=== PATIENT | male | born 1975 | race Caucasian/White ===

== ENCOUNTER 2016-10-04 00:18 | Emergency (ER) | payer OTHER ==
[~2016-10-04] VITALS: Ht 175.3 cm; Wt 76.2 kg
[~2016-10-04 00:18] MED LIST: DILA100C PO
[2016-10-04 01:36] LABS: MEAN CORPUSCULAR HEMOGLOBIN 34.7 pg (27.0-33.0); MEAN CORPUSCULAR HGB CONC 35.3 g/dl (32.0-36.5); MEAN CORPUSCULAR VOLUME 98.2 fl (80.0-96.0); RED CELL DISTRIBUTION WIDTH 12.1 % (11.5-14.5); WHITE BLOOD COUNT 6.4 K/mm3 (4.0-10.0)
--- NOTE | 2016-10-04 02:00 | REPUSA ---
CLINICAL HISTORY: Head trauma. TECHNIQUE: Multiple axial brain CT scan sections were obtained from base to vertex without contrast a dministration. COMMENTS: Comparison is made to the prior exam performed on 05/23/2015. There is no evidence of skull fracture. The study shows normal configuration of sella turcica. There are no intra or extra-axial collections. There is no mass effect or midline shift. There is no evidence of hematoma formation. No hydrocephal us is present. No abnormal calcifications are noted. No significant abnormalities are seen either in the posterior fossa or supratentorial compartment. Unchanged mild chronic mucosal inflammatory changes of the sphenoid sinuses and ethmoid air cells. The remaining sinuses and mastoid air cells are patent. IMPRESSION: Unchanged chronic sinusitis. No evidence of acute intracranial pathology. No intracranial hemorrhage or skull fracture. Thank you for your kind referral of this patient.
[2016-10-04 02:14] LABS: ALBUMIN 4.1 GM/DL (3.2-5.2); ALBUMIN/GLOBULIN RATIO 1.32 (1.00-1.93); ALKALINE PHOSPHATASE 143 U/L (45-117); ALT/SGPT 20 U/L (12-78); ANION GAP 12 MEQ/L (8-16); AST/SGOT 11 U/L (15-37); BILIRUBIN,DIRECT 0.3 MG/DL (0.0-0.2); BILIRUBIN,TOTAL 0.9 MG/DL (0.2-1.0); BLOOD UREA NITROGEN 19 MG/DL (7-18); CARBON DIOXIDE LEVEL 23 MEQ/L (21-32); CHLORIDE LEVEL 104 MEQ/L (98-107); CREATININE FOR GFR 0.75 MG/DL (0.70-1.30); GLOMERULAR FILTRATION RATE > 60.0 (>60); GLUCOSE, FASTING 78 MG/DL (70-105); POTASSIUM SERUM 3.8 MEQ/L (3.5-5.1); SODIUM LEVEL 139 MEQ/L (136-145); TOTAL PROTEIN 7.2 GM/DL (6.4-8.2)
[2016-10-04 02:52] LABS: METHADONE URINE NEGATIVE (NEGATIVE)
[2016-10-04 03:28] VITALS: BP 131/88
== END 2016-10-04 03:29 | disposition home or self-care (01) ==
LOC: M ED 01:39
DX: F32.9 Major depressive disorder, single episode, unspecified (principal); R56.9 Unspecified convulsions; Z87.820 Personal history of traumatic brain injury; F17.200 Nicotine dependence, unspecified, uncomplicated; F12.10 Cannabis abuse, uncomplicated
CPT/HCPCS: 70450; 80048; 80076; 80185; 80306; 84443; 85027; 99282; G0480

== ENCOUNTER 2017-04-23 15:39 | Emergency (ER) | payer OTHER ==
[~2017-04-23] VITALS: Ht 175.3 cm; Wt 76.0 kg
[2017-04-23] MEDS ORDERED: [UNRECOGNIZED DRUG - REMARK] PO (15:48)
[2017-04-23] MEDS ORDERED: ADACEL/BOOSTRIX VACCINE (DIPHTH/PERTUSS/ACELL/TETANUS)0.5ML SYR (90715) IM ONE (17:30)
[2017-04-23 17:42] VITALS: BP 141/89
== END 2017-04-23 18:02 | disposition home or self-care (01) ==
LOC: M ED 15:39
DX: S01.01XA Laceration without foreign body of scalp, initial encounter (principal); W20.8XXA Other cause of strike by thrown, projected or falling object, initial encounter; Y92.099 Unspecified place in other non-institutional residence as the place of occurrence of the external cause; Y93.89 Activity, other specified; Y99.9 Unspecified external cause status; G40.909 Epilepsy, unspecified, not intractable, without status epilepticus; Z79.899 Other long term (current) drug therapy

== ENCOUNTER 2017-05-04 17:44 | Emergency (ER) | payer OTHER ==
[~2017-05-04] VITALS: Ht 175.3 cm; Wt 79.2 kg
[2017-05-04 17:44] VITALS: BP 151/84
[~2017-05-04 17:44] MED LIST changes: +[UNRECOGNIZED DRUG - REMARK] PO
[2017-05-04] MEDS ORDERED: KEPP10002 PO (17:49)
== END 2017-05-04 18:31 | disposition home or self-care (01) ==
LOC: M ED 17:44
DX: Z48.02 Encounter for removal of sutures (principal)

== ENCOUNTER → 2017-06-09 | Outpatient (CLI) | payer OTHER ==
[2017-06-09 17:33] LABS: BASO # 0.1 10^3/uL (0.0-0.2); BASO % 1.1 % (0.0-1.0); EOS # 0.2 10^3/uL (0.0-0.50); EOS % 3.7 % (0.0-3.0); HEMATOCRIT 44.2 % (42.0-52.0); HEMOGLOBIN 15.8 g/dl (14.0-18.0); IMMATURE GRANULOCYTE % 0.6 % (0-0); LYMPH # 1.6 10^3/uL (1.5-4.5); LYMPH % 29.7 % (24.0-44.0); MEAN CORPUSCULAR HEMOGLOBIN 35.9 pg (27.0-33.0); MEAN CORPUSCULAR HGB CONC 35.7 g/dl (32.0-36.5); MEAN CORPUSCULAR VOLUME 100.5 fl (80.0-96.0); MONO # 0.7 10^3/uL (0.0-0.8); MONO % 12.8 % (0.0-5.0); NEUTROPHILS # 2.8 10^3/uL (1.8-7.7); NEUTROPHILS % 52.1 % (36.0-66.0); PLATELET COUNT, AUTOMATED 172 10^3/uL (150-450); RED CELL DISTRIBUTION WIDTH 11.9 % (11.5-14.5); WHITE BLOOD COUNT 5.5 10^3/uL (4.0-10.0)
[2017-06-09 19:02] LABS: ALBUMIN 3.8 GM/DL (3.2-5.2); ALBUMIN/GLOBULIN RATIO 1.41 (1.00-1.93); ALKALINE PHOSPHATASE 107 U/L (45-117); ALT/SGPT 28 U/L (12-78); ANION GAP 6 MEQ/L (8-16); AST/SGOT 20 U/L (7-37); BILIRUBIN,TOTAL 0.4 MG/DL (0.2-1.0); BLOOD UREA NITROGEN 7 MG/DL (7-18); CALCIUM LEVEL 8.6 MG/DL (8.5-10.1); CARBON DIOXIDE LEVEL 30 MEQ/L (21-32); CHLORIDE LEVEL 106 MEQ/L (98-107); CREATININE FOR GFR 0.89 MG/DL (0.70-1.30); GLOMERULAR FILTRATION RATE > 60.0 (>60); GLUCOSE, FASTING 95 MG/DL (70-105); POTASSIUM SERUM 3.8 MEQ/L (3.5-5.1); SODIUM LEVEL 142 MEQ/L (136-145); TOTAL PROTEIN 6.5 GM/DL (6.4-8.2)
[2017-06-13 14:11] LABS: LEVETIRACETAM (KEPPRA) 24.5 ug/mL (10.0-40.0)
== END ==
LOC: M LAB 17:15
DX: Z51.81 Encounter for therapeutic drug level monitoring (principal); Z79.899 Other long term (current) drug therapy; R56.9 Unspecified convulsions
CPT/HCPCS: 80053

== ENCOUNTER → 2017-11-09 | Outpatient (REF) | payer OTHER ==
[2017-11-13 08:06] LABS: LEVETIRACETAM (KEPPRA) 33.4 ug/mL (10.0-40.0)
== END ==
LOC: M LABNEURO 15:48
DX: G40.909 Epilepsy, unspecified, not intractable, without status epilepticus (principal)

== ENCOUNTER 2018-09-12 10:13 | Outpatient (CLI) | payer OTHER ==
[~2018-09-12 10:13] MED LIST changes: +KEPP10002 PO
[2018-09-12 11:55] VITALS: BP 132/89
--- NOTE | 2018-09-12 12:00 | REP ---
MR BRAIN WITHOUT CONTRAST: HISTORY: Seizure. COMPARISON: MR 12/07/[address] 10/04/2016. There are no areas of abnormal signal intensity in the brain. There is no intraparenchymal hemorrhage, infarct, mass, or midline shift. The ventricular system is normal in appearance. There is no extracerebral collection. The sinuses are clear. IMPRESSION: There is no intracranial lesion. Electronically Signed by Arash Pierce MD 09/12/2018 12:19 P
== END 2018-09-12 12:05 | disposition home or self-care (01) ==
LOC: M SDC 10:13
PROVIDERS: ATTEND Physician Assistant Medical
DX: G40.89 Other seizures (principal); S09 Other and unspecified injuries of head; X58.XXXD Exposure to other specified factors, subsequent encounter; Y92.9 Unspecified place or not applicable; Y93.9 Activity, unspecified; Y99.9 Unspecified external cause status

== ENCOUNTER 2018-09-22 13:22 | Emergency (ER) | payer OTHER ==
[~2018-09-22] VITALS: Ht 175.3 cm; Wt 76.0 kg
[2018-09-22] MEDS ORDERED: KETOROLAC TROMETHAMINE 10 MG TAB PO ONE (15:45)
[2018-09-22] MEDS ORDERED: CYCLOBENZAPRINE 5MG TABLET PO ONE (15:45)
[2018-09-22] MEDS ORDERED: ZANA4TAB PO (17:34)
[2018-09-22] MEDS ORDERED: KETO10TAB PO (17:34)
[2018-09-22 17:40] VITALS: BP 135/90
--- NOTE | 2018-09-22 18:56 | REP ---
LUMBOSACRAL SPINE SERIES: Five views of the lumbosacral spine are performed. There is no compression fracture or malalignment. There is no spondylolysis or spondylolisthesis. Mild disc space narrowing at L4-5 and L5-S1. There is mild sclerosis at the facets of L5-S1. The posterior elements are intact. There is mild curvature toward the right. IMPRESSION: Mild degenerative changes without fracture or dislocation. Electronically Signed by Tim Bowser MD 09/25/2018 01:53 P
--- NOTE | 2018-09-22 19:01 | REP ---
RIGHT RIB SERIES: Four views of the right ribs are performed. There is no evidence of fracture or bone lesion. An accompanying view of the chest demonstrates no acute infiltrate, pneumothorax or pleural effusion. Heart is normal in size and the mediastinal silhouette is unremarkable. There is an old left clavicular fracture again noted. IMPRESSION: No evidence of right rib fracture. Electronically Signed by Tim Bowser MD 09/25/2018 04:15 P
== END 2018-09-22 17:42 | disposition home or self-care (01) ==
LOC: M ED 13:22
DX: G89.29 Other chronic pain (principal); M54.5 Low back pain; R56.9 Unspecified convulsions; F12.10 Cannabis abuse, uncomplicated; Z79.899 Other long term (current) drug therapy

== ENCOUNTER → 2021-02-18 | Outpatient (CLI) | payer OTHER ==
[~2021-02-18] MED LIST changes: +KETO10TAB PO; +ZANA4TAB PO
== END ==
LOC: M PLALAB 11:28
PROVIDERS: ATTEND Student in an Organized Health Care Education/Training Program
DX: G40.909 Epilepsy, unspecified, not intractable, without status epilepticus (principal)

== ENCOUNTER → 2021-02-18 | Outpatient (REF) | payer OTHER | LOC: M SFHCPLAZ 11:22 | PROVIDERS: ATTEND Family Medicine | DX: Z53.9 Procedure and treatment not carried out, unspecified reason (principal); G40.909 Epilepsy, unspecified, not intractable, without status epilepticus ==

== ENCOUNTER → 2023-03-07 | Outpatient (CLI) | payer OTHER ==
[2023-03-07 17:05] LABS: OSMOLALITY URINE 334 MOSM/KG (50-1400)
[2023-03-07 17:31] LABS: SODIUM,RANDOM URINE 67 MMOL/L
[2023-03-07 17:43] LABS: TOTAL IRON BINDING CAPACITY 314 UG/DL (250-425)
[2023-03-07 17:44] LABS: IRON (FE) 153 UG/DL (65-175); PERCENT SATURATION 48.7 % (19.7-50.0)
[2023-03-07 18:01] LABS: ALBUMIN 3.8 G/DL (3.2-5.2); ALKALINE PHOSPHATASE 114 U/L (46-116); ALT/SGPT 47 U/L (7.0-40); AST/SGOT 104 U/L (<34); BILIRUBIN,TOTAL 0.5 MG/DL (0.3-1.2); BLOOD UREA NITROGEN < 5 MG/DL (9-23); CALCIUM LEVEL 8.8 MG/DL (8.5-10.1); CARBON DIOXIDE LEVEL 25 MMOL/L (20-31); CHLORIDE LEVEL 100 MMOL/L (98-107); CREATININE FOR GFR 0.69 MG/DL (0.70-1.30); FERRITIN 251.3 NG/ML (10.5-307.3); FOLATE 10.61 NG/ML (>5.4); GLOMERULAR FILTRATION RATE > 60.0 (>60); GLUCOSE, FASTING 58 MG/DL (60-100); POTASSIUM SERUM 4.2 MMOL/L (3.5-5.1); SODIUM LEVEL 132 MMOL/L (136-145); TOTAL PROTEIN 6.5 G/DL (5.7-8.2); VITAMIN B12 LEVEL 263 PG/ML (211-911)
[2023-03-07 18:03] LABS: OSMOLALITY SERUM 292 MOSM/KG (275-295)
== END ==
LOC: M PLALAB 15:19
PROVIDERS: ATTEND Student in an Organized Health Care Education/Training Program
DX: R89.9 Unspecified abnormal finding in specimens from other organs, systems and tissues (principal)

== ENCOUNTER → 2023-07-22 | Outpatient (CLI) | payer OTHER | LOC: M PLALAB 16:15 | PROVIDERS: ATTEND Student in an Organized Health Care Education/Training Program | DX: M79.675 Pain in left toe(s) (principal) ==

== ENCOUNTER → 2023-08-04 | Outpatient (CLI) | payer OTHER | LOC: M RAD 15:06 | PROVIDERS: ATTEND Family Medicine | DX: M79.675 Pain in left toe(s) (principal) ==

== ENCOUNTER 2024-06-14 19:00 | Observation (INO) | payer MEDICAID, OTHER ==
[~2024-06-14] VITALS: Ht 162.6 cm; Wt 70.4 kg
[2024-06-14] MEDS ORDERED: HALOPERIDOL LACTATE 5MG/ML VIAL As Ordered ONE (19:03)
[2024-06-14] MEDS ORDERED: LORazepam 2 MG/ML 1ML VIAL As Ordered ONE (19:03)
[2024-06-14] MEDS ORDERED: diphenhydrAMINE 50MG/ML VIAL As Ordered ONE (19:03)
[2024-06-14] MEDS: NS (Normal Saline) 0.9% 1,000 ML IV ONE (19:10)
[2024-06-14] MEDS: diphenhydrAMINE 50MG/ML VIAL IM ONE (19:21)
[2024-06-14] MEDS: HALOPERIDOL LACTATE 5MG/ML VIAL IM ONE (19:21)
[2024-06-14] MEDS: LORazepam 2 MG/ML 1ML VIAL IM ONE (19:21)
[2024-06-14] MEDS ORDERED: MIDA5SPR (19:28)
[2024-06-14] MEDS ORDERED: LEVE10003 PO (19:28)
[2024-06-14] MEDS ORDERED: LAMO25TA4 PO (19:28)
[2024-06-14 19:33] LABS: VENOUS BASE EXCESS 1.3 (-2.0-2.0); VENOUS HCO3 26.9 MMOL/L (23.0-27.0); VENOUS O2 SATURATION 81.3 % (60.0-80.0); VENOUS PARTIAL PRESSURE CO2 45.7 mmHg (38.0-50.0); VENOUS PARTIAL PRESSURE O2 42.5 mmHg (30.0-50.0); VENOUS PH 7.387 UNITS (7.330-7.430); VENOUS STANDARD HCO3 25.2 MMOL/L; VENOUS TOTAL CO2 28.3 MMOL/L (24.0-28.0)
[2024-06-14 19:48] LABS: BASO % 0.9 % (0.0-1.0); EOS # 0.2 10^3/uL (0.0-0.5); EOS % 4.8 % (0.0-3.0); HEMATOCRIT 40.2 % (42.0-52.0); HEMOGLOBIN 14.6 g/dl (13.5-17.5); LYMPH # 0.8 10^3/uL (1.5-5.0); LYMPH % 18.2 % (24.0-44.0); MEAN CORPUSCULAR HEMOGLOBIN 35.2 pg (27.0-33.0); MEAN CORPUSCULAR HGB CONC 36.3 g/dl (32.0-36.5); MEAN CORPUSCULAR VOLUME 96.9 fl (80.0-96.0); MONO # 0.6 10^3/uL (0.0-0.8); MONO % 13.3 % (2.0-8.0); NEUTROPHILS # 2.9 10^3/uL (1.5-8.5); NEUTROPHILS % 62.6 % (36.0-66.0); PLATELET COUNT, AUTOMATED 146 10^3/uL (150-450); RED BLOOD COUNT 4.15 10^6/uL (4.30-6.10); WHITE BLOOD COUNT 4.6 10^3/uL (4.0-10.0)
[2024-06-14 20:02] LABS: CK-MB VALUE MASS 2.3 NG/ML (<3.6); ETHYL ALCOHOL (ETHANOL) 0.005 % (0.000-0.010)
[2024-06-14 20:04] LABS: ALBUMIN 3.8 G/DL (3.2-5.2); ALKALINE PHOSPHATASE 107 U/L (40-129); ALT/SGPT 77 U/L (7.0-40); AST/SGOT 68 U/L (<34); BILIRUBIN,DIRECT 0.2 MG/DL (<0.4); BILIRUBIN,TOTAL 0.5 MG/DL (0.3-1.2); BLOOD UREA NITROGEN 5 MG/DL (9-23); CALCIUM LEVEL 8.2 MG/DL (8.5-10.1); CARBON DIOXIDE LEVEL 30 MMOL/L (20-31); CHLORIDE LEVEL 98 MMOL/L (98-107); CPK CREATINE PHOSPHOKINASE 123 U/L (46-171); CREATININE FOR GFR 0.61 MG/DL (0.70-1.30); GLOMERULAR FILTRATION RATE > 60.0 (>60); GLUCOSE, FASTING 114 MG/DL (60-100); MB/CK RELATIVE INDEX 1.86 (< OR =4); POTASSIUM SERUM 3.5 MMOL/L (3.5-5.1); SALICYLATE LEVEL < 3.0 MG/DL (<30); SODIUM LEVEL 133 MMOL/L (136-145); TOTAL PROTEIN 6.7 G/DL (5.7-8.2)
[2024-06-14 20:06] LABS: THYROID STIMULATING HORMONE 1.278 uIU/ML (0.55-4.78)
[2024-06-14 20:17] LABS: KETONE, URINE AUTO RFX NEGATIVE (NEGATIVE); LEUKOCYTE ESTERASE UR AUTO RFX NEGATIVE (NEGATIVE); NITRITE, URINE AUTO RFX NEGATIVE (NEGATIVE); RBC, URINE AUTO RFX 15 /HPF (0-3); SQUAM EPITHELIAL CELL UR AURFX 0 /HPF (0-6); WBC, URINE AUTO RFX 0 /HPF (0-3)
[2024-06-14 20:42] LABS: BARBITURATES URINE NEGATIVE (NEGATIVE); BENZODIAZEPINES URINE NEGATIVE (NEGATIVE); COCAINE METABOLITE URINE NEGATIVE (NEGATIVE); METHADONE URINE NEGATIVE (NEGATIVE); OPIATES URINE NEGATIVE (NEGATIVE); PHENCYCLIDINE URINE NEGATIVE (NEGATIVE)
[2024-06-14 20:45] LABS: AMPHETAMINES LEVEL URINE POSITIVE (NEGATIVE); CANNABINOIDS URINE POSITIVE (NEGATIVE)
[2024-06-14 20:47] LABS: OSMOLALITY SERUM 274 MOSM/KG (275-295)
[2024-06-14 21:31] LABS: MB/CK RELATIVE INDEX 0.94 (< OR =4)
[2024-06-14] MEDS ORDERED: LORazepam 2 MG TAB PO PRN (21:35)
[2024-06-15] MEDS: FOLIC ACID 1MG TAB PO SCH ×2 (00:04→09:00)
[2024-06-15] MEDS: MULTIVITAMINS/MINERALS THERAP 1 TAB PO SCH ×2 (00:04→09:00)
[2024-06-15] MEDS: THIAMINE 100 MG TAB PO SCH (00:04)
[2024-06-15] MEDS ORDERED: MOM 30ML SUSPENSION UDC PO PRN (02:40)
[2024-06-15] MEDS ORDERED: LORazepam 2 MG TAB PO PRN (02:40)
[2024-06-15] MEDS: KCL 20MEQ in NS 1000ML 1,000 ML IV SCH (03:08)
[2024-06-15] MEDS: THIAMINE INJection 500 MG in NS 100 ML IV SCH (06:15)
[2024-06-15 06:28] VITALS: TEMP 97.2
[2024-06-15] MEDS ORDERED: MED REC IN PROGRESS XX SCH (07:10)
[2024-06-15 08:27] LABS: HEMATOCRIT 38.4 % (42.0-52.0); HEMOGLOBIN 13.7 g/dl (13.5-17.5); MEAN CORPUSCULAR HEMOGLOBIN 35.4 pg (27.0-33.0); MEAN CORPUSCULAR HGB CONC 35.7 g/dl (32.0-36.5); MEAN CORPUSCULAR VOLUME 99.2 fl (80.0-96.0); PLATELET COUNT, AUTOMATED 147 10^3/uL (150-450); RED BLOOD COUNT 3.87 10^6/uL (4.30-6.10); WHITE BLOOD COUNT 3.7 10^3/uL (4.0-10.0)
[2024-06-15] MEDS: lamoTRIgine 25MG TAB PO SCH (09:00)
[2024-06-15] MEDS ORDERED: THIAMINE 100 MG TAB PO SCH (09:00)
[2024-06-15] MEDS: levETIRAcetam 250MG TABLET (KEPPRA) PO SCH (09:00)
[2024-06-15] MEDS: ENOXAPARIN 40MG/0.4ML SYRINGE (J1650 PER 10MG) SC SCH (09:00)
[2024-06-15 09:09] LABS: ALBUMIN 2.9 G/DL (3.2-5.2); ALKALINE PHOSPHATASE 86 U/L (40-129); ALT/SGPT 61 U/L (7.0-40); AST/SGOT 59 U/L (<34); BILIRUBIN,TOTAL 0.4 MG/DL (0.3-1.2); BLOOD UREA NITROGEN 7 MG/DL (9-23); CALCIUM LEVEL 8.3 MG/DL (8.5-10.1); CARBON DIOXIDE LEVEL 28 MMOL/L (20-31); CHLORIDE LEVEL 104 MMOL/L (98-107); CREATININE FOR GFR 0.63 MG/DL (0.70-1.30); GLOMERULAR FILTRATION RATE > 60.0 (>60); GLUCOSE, FASTING 71 MG/DL (60-100); MAGNESIUM LEVEL 1.9 MG/DL (1.8-2.4); POTASSIUM SERUM 4.1 MMOL/L (3.5-5.1); SODIUM LEVEL 138 MMOL/L (136-145); TOTAL PROTEIN 5.7 G/DL (5.7-8.2)
[2024-06-15] MEDS ORDERED: HOME MED LIST COMPLETE! XX SCH (09:15)
[2024-06-15 11:00] VITALS: BP 132/80; O2SAT 96
[2024-06-15] MEDS ORDERED: FOLI1TAB11 PO (12:16)
[2024-06-15] MEDS ORDERED: THIA100TA PO (12:16)
[2024-06-20 00:18] LABS: LAMOTRIGINE (LAMICTAL) 1.8 mcg/mL (2.5-15.0)
[2024-06-20 00:32] LABS: LEVETIRACETAM (KEPPRA) 28.7 mcg/mL (6.0-46.0)
== END 2024-06-15 12:58 | disposition home or self-care (01) ==
LOC: EDBD 19:00 → M ED 19:00 → M ED INP 19:01
PROVIDERS: ADMIT Family Medicine; ATTEND Family Medicine
DX: G92.9 Unspecified toxic encephalopathy (principal); F15.10 Other stimulant abuse, uncomplicated; F10.10 Alcohol abuse, uncomplicated; G40.909 Epilepsy, unspecified, not intractable, without status epilepticus; Z79.899 Other long term (current) drug therapy; F12.10 Cannabis abuse, uncomplicated; E87.1 Hypo-osmolality and hyponatremia; R74.01 Elevation of levels of liver transaminase levels; D69.6 Thrombocytopenia, unspecified
CPT/HCPCS: 36415; 51701; 70450; 71045; 80048; 80053; 80076; 80143; 80175; 80177; 80307; 81001; 82077; 82140; 82550; 82553; 82803; 83605; 83735; 83930; 84443; 84484; 85025; 85027; 93005; 93041; 94760; 96361; 96365; 96366; 96372; 96375; 99285; J1200; J1630; J2060; J3411

== ENCOUNTER → 2025-01-02 | Outpatient (REF) | payer OTHER ==
[~2025-01-02] MED LIST changes: +FOLI1TAB11 PO; +LAMO-18 PO; +LEVE10003 PO; +MIDA5SPR; +THIA100TA PO
[2025-01-02 19:05] LABS: PLATELET COUNT, AUTOMATED 223 10^3/uL (150-450)
[2025-01-03 01:10] LABS: ALT/SGPT 48 U/L (7.0-40); AST/SGOT 42 U/L (<34); CALCIUM LEVEL 9.1 MG/DL (8.5-10.1); CARBON DIOXIDE LEVEL 28 MMOL/L (20-31); CHLORIDE LEVEL 96 MMOL/L (98-107); CHOLESTEROL LEVEL 175 MG/DL (<200); CHOLESTEROL RISK RATIO 1.84 (<5); CREATININE FOR GFR 0.76 MG/DL (0.70-1.30); GLOMERULAR FILTRATION RATE > 90.0 (>60); LDL CHOLESTEROL 66.6 MG/DL (<100); NON-HDL-C 80.4 MG/DL; POTASSIUM SERUM 4.4 MMOL/L (3.5-5.1); SODIUM LEVEL 130 MMOL/L (136-145); TRIGLYCERIDES LEVEL 69 MG/DL (<150)
[2025-01-03 01:12] LABS: FREE T4 1.06 NG/DL (0.89-1.76)
[2025-01-03 01:23] LABS: ESTIMATED AVERAGE GLUCOSE 80.0 MG/DL (60-110)
== END ==
LOC: M SFHCADAM 11:46
PROVIDERS: ATTEND Physician Assistant
DX: G40.909 Epilepsy, unspecified, not intractable, without status epilepticus (principal); F17.210 Nicotine dependence, cigarettes, uncomplicated; F10.11 Alcohol abuse, in remission; Z13.220 Encounter for screening for lipoid disorders; Z13.1 Encounter for screening for diabetes mellitus

== ENCOUNTER 2025-04-12 22:38 | Emergency (ER) | payer OTHER ==
[~2025-04-12] VITALS: Ht 175.3 cm; Wt 79.2 kg
[2025-04-12 22:42] VITALS: BP 179/89; TEMP 97.8; O2SAT 99
[2025-04-13] MEDS ORDERED: LAMO100T80 PO (08:56)
== END 2025-04-13 01:30 | disposition left against medical advice (07) ==
LOC: M ED 22:38
DX: Z53.21 Procedure and treatment not carried out due to patient leaving prior to being seen by health care provider (principal)

== ENCOUNTER 2025-04-13 05:58 | Emergency (ER) | payer OTHER ==
[~2025-04-13] VITALS: Ht 175.3 cm; Wt 79.2 kg
[2025-04-13 06:46] LABS: BASO # 0.1 10^3/uL (0.0-0.2); BASO % 0.9 % (0.0-1.0); EOS # 0.2 10^3/uL (0.0-0.5); EOS % 2.4 % (0.0-3.0); LYMPH # 1.0 10^3/uL (1.5-5.0); LYMPH % 13.1 % (24.0-44.0); MONO # 0.9 10^3/uL (0.0-0.8); MONO % 11.5 % (2.0-8.0); NEUTROPHILS # 5.7 10^3/uL (1.5-8.5); NEUTROPHILS % 71.6 % (36.0-66.0); PLATELET COUNT, AUTOMATED 218 10^3/uL (150-450)
[2025-04-13 07:06] LABS: ETHYL ALCOHOL (ETHANOL) < 0.003 % (0.000-0.010)
[2025-04-13 07:08] LABS: ALT/SGPT 26 U/L (7.0-40); AST/SGOT 24 U/L (<34); CALCIUM LEVEL 8.6 MG/DL (8.5-10.1); CARBON DIOXIDE LEVEL 27 MMOL/L (20-31); CHLORIDE LEVEL 98 MMOL/L (98-107); CK-MB VALUE MASS 4.0 NG/ML (<3.6); CREATININE FOR GFR 0.78 MG/DL (0.70-1.30); GLOMERULAR FILTRATION RATE > 90.0 (>60); POTASSIUM SERUM 3.8 MMOL/L (3.5-5.1); SALICYLATE LEVEL < 3.0 MG/DL (<30); SODIUM LEVEL 133 MMOL/L (136-145)
[2025-04-13 07:15] LABS: CPK CREATINE PHOSPHOKINASE 242 U/L (46-171); MB/CK RELATIVE INDEX 1.65 (< OR =4)
[2025-04-13] MEDS ORDERED: ONDANSETRON 4MG/2ML VIAL IV ONE (07:45)
[2025-04-13] MEDS ORDERED: MORPHINE 4 MG/ML 1 ML VIAL IV ONE (07:45)
[2025-04-13] MEDS ORDERED: ISOVUE-370 76% 100 ML VIAL As Ordered ONE (07:49)
[2025-04-13 08:27] LABS: CK-MB VALUE MASS 4.1 NG/ML (<3.6); CPK CREATINE PHOSPHOKINASE 230.0 U/L (46-171); MB/CK RELATIVE INDEX 1.78 (< OR =4)
[2025-04-13] MEDS: LIDOCAINE 2% 5 ML JELLY UROJET TOP ONE (08:35)
[2025-04-13] MEDS: HALOPERIDOL LACTATE 5 MG/ML VIAL IM ONE (08:46)
[2025-04-13] MEDS: levETIRAcetam INJection 1,500 MG in IV 1 EA IV ONE (08:46)
[2025-04-13] MEDS: diphenhydrAMINE 50 MG/ML VIAL IM ONE (08:46)
[2025-04-13] MEDS ORDERED: LAMO100T80 PO (08:56)
[2025-04-13] MEDS ORDERED: HOME MED LIST COMPLETE! XX SCH (09:00)
[2025-04-13] MEDS: ACETAMINOPHEN *IV* 1,000 MG in IV 1 EA IV ONE (09:09)
[2025-04-13 09:44] LABS: KETONE, URINE AUTO RFX TRACE mg/dL (NEGATIVE); LEUKOCYTE ESTERASE UR AUTO RFX NEGATIVE (NEGATIVE); NITRITE, URINE AUTO RFX NEGATIVE (NEGATIVE); RBC, URINE AUTO RFX 1 /HPF (0-3); SQUAM EPITHELIAL CELL UR AURFX 0 /HPF (0-6); WBC, URINE AUTO RFX 0 /HPF (0-3)
[2025-04-13 10:06] LABS: BARBITURATES URINE NEGATIVE (NEGATIVE); BENZODIAZEPINES URINE NEGATIVE (NEGATIVE); COCAINE METABOLITE URINE NEGATIVE (NEGATIVE); METHADONE URINE NEGATIVE (NEGATIVE); OPIATES URINE NEGATIVE (NEGATIVE); PHENCYCLIDINE URINE NEGATIVE (NEGATIVE)
[2025-04-13 10:08] LABS: AMPHETAMINES LEVEL URINE POSITIVE (NEGATIVE); CANNABINOIDS URINE POSITIVE (NEGATIVE)
[2025-04-13] MEDS: MULTIVITAMIN -ADULT INJECTION 10 ML, THIAMINE INJection 100 MG, FOLIC ACID 1 MG in NS (... IV ONE (14:15)
[2025-04-13 19:37] VITALS: BP 144/89; TEMP 98.5; O2SAT 98
== END 2025-04-13 19:39 | disposition home or self-care (01) ==
LOC: M ED 05:58
DX: S30.0XXA Contusion of lower back and pelvis, initial encounter (principal); S20.20XA Contusion of thorax, unspecified, initial encounter; F19.159 Other psychoactive substance abuse with psychoactive substance-induced psychotic disorder, unspecified; W01.198A Fall on same level from slipping, tripping and stumbling with subsequent striking against other object, initial encounter; S22.080A Wedge compression fracture of T11-T12 vertebra, initial encounter for closed fracture; M51.44 Schmorl's nodes, thoracic region; F17.200 Nicotine dependence, unspecified, uncomplicated; F10.10 Alcohol abuse, uncomplicated; Y92.9 Unspecified place or not applicable; Y93.89 Activity, other specified; Y99.9 Unspecified external cause status; Z79.899 Other long term (current) drug therapy
CPT/HCPCS: 51701; 70450; 71045; 71260; 72125; 72128; 72131; 74177; 80048; 80076; 80143; 80177; 80307; 81001; 82077; 82140; 82550; 82553; 84443; 84484; 85025; 93005; 93041; 94760; 96372; 96374; 96375; 99285; J0134; J1200; J1630; J1808; J1953; J2060; J3411; Q9967